=== PATIENT | female | born 1970 | race African-American/Black ===

== ENCOUNTER 2018-08-15 22:59 | Emergency (ER) | payer MEDICAID ==
[~2018-08-15] VITALS: Ht 167.6 cm; Wt 78.0 kg
[2018-08-16] MEDS ORDERED: MORPHINE SULFATE 4 MG/ML CPJ (NOT FOR IM USE) IV STA (01:57)
[2018-08-16] MEDS ORDERED: SODIUM CHLORIDE 0.9% 1,000 ML IV ONE (01:57)
[2018-08-16 02:24] LABS: CLARITY URINE CLOUDY (CLEAR); COLOR URINE YELLOW (YELLOW); KETONES URINE TRACE (NEGATIVE); LEUKOCYTE ESTERASE URINE NEGATIVE (NEGATIVE); NITRITE URINE NEGATIVE (NEGATIVE); OCCULT BLOOD URINE NEGATIVE (NEGATIVE); PH URINE 5.5 (4.5-8.0); PROTEIN URINE NEGATIVE (NEGATIVE); SPECIFIC GRAVITY URINE 1.027 (1.005-1.030)
[2018-08-16 02:26] LABS: BASOPHILS % 0.8 % (0.0-2.0); HEMATOCRIT. 34.2 % (36.0-48.0); HEMOGLOBIN. 11.5 g/dL (12.0-16.0); LYMPHOCYTES % 31.2 % (20.0-50.0); MEAN CORPUSCULAR HEMOGLOBIN 28.3 pg (28.0-32.0); MEAN CORPUSCULAR VOLUME 83.9 fL (81.0-99.0); MEAN PLATELET VOLUME 10.1 fl (7.4-10.4); MONOCYTES % 11.3 % (2.0-8.0); NEUTROPHILS % 55.7 % (40.0-76.0); PLATELET 196 x1000/uL (130-400); RED BLOOD CELL COUNT 4.08 mill/uL (4.2-5.4); RED CELL DISTRIBUTION WIDTH 13.7 % (11.6-14.6)
[2018-08-16 02:30] LABS: CHLORIDE 108 mEq/L (98-107); INR 0.9; PROTHROMBIN TIME 9.6 sec (9.6-11.0)
[2018-08-16 02:32] LABS: HCG SCREEN NEGATIVE
[2018-08-16 05:14] VITALS: BP 110/75
[2018-08-16] MEDS ORDERED: TRAMADOL 50MG TABLET PO ONE (06:00)
== END 2018-08-16 07:20 | disposition home or self-care (01) ==
LOC: ER 22:59
DX: D25.9 Leiomyoma of uterus, unspecified (principal); M54.5 Low back pain; F12.10 Cannabis abuse, uncomplicated; Z98.890 Other specified postprocedural states; Z88.1 Allergy status to other antibiotic agents
CPT/HCPCS: 36415; 72220; 76830; 76856; 80053; 81003; 83690; 84703; 85025; 85610; 96374; 99284; J2270; J7030; Z7610